=== PATIENT | male | born 1985 | race Caucasian/White ===

== ENCOUNTER 2018-10-15 14:00 | Emergency (ER) | payer BC ==
--- NOTE | 2018-10-15 14:07 | EDM.PDOC ---
ED HPI GENERAL MEDICAL PROBLEM - General Chief Complaint: Upper Extremity Injury/Pain Stated Complaint: POSSIBLY BROKE FINGER Time Seen by Provider: 10/15/18 14:06 Source of Information: Reports: Patient History Limitations: Reports: No Limitations - History of Present Illness INITIAL COMMENTS - FREE TEXT/NARRATIVE: HISTORY AND PHYSICAL: History of present illness: Patient is a 33-year-old male who is acting today for a finger injury. Patient states that he has been camping this weekend and he was playing on the monkey bars when he reached his hand up and jammed it on the metal bar. He states that initially his right fourth finger was white color returned on his way here, now pink with good CMS. He is unable to move finger but has full range of motion of all his other digits on his right hand. Reports achy pain to fourth right finger. He denies hitting his head or having any loss of consciousness. Has no other concerns or complaints today. Review of systems: As per history of present illness and below otherwise all systems reviewed and negative. Past medical history: As per history of present illness and as reviewed below otherwise noncontributory. Surgical history: As per history of present illness and as reviewed below otherwise noncontributory. Social history: See social history for further information Family history: As per history of present illness and as reviewed below otherwise noncontributory. Physical exam: General: Well-developed and well-nourished 33-year-old male. Alert and oriented. Nontoxic appearing and in no acute distress. HEENT: Atraumatic, normocephalic, pupils equal and reactive bilaterally, negative for conjunctival pallor or scleral icterus, mucous membranes moist, trachea midline. No drooling or trismus noted. No meningeal signs. No hot potato voice noted. Lungs: Clear to auscultation, breath sounds equal bilaterally, chest nontender. Heart: S1S2, regular rate and rhythm without overt murmur Abdomen: Soft, nondistended, nontender. Skin: Intact, warm, dry. No lesions or rashes noted. Extremities: Neurovascular unremarkable. Right fourth digit cap refill <2 sec, skin intact with no obvious deformities. Unable to demonstrate flexion the DIP joint of the fourth right digit. ROM and strength intact to all other digits and wrist. Radial pulse grossly intact. Neuro: Awake, alert, oriented. Cranial nerves II through XII unremarkable. Cerebellum unremarkable. Motor and sensory unremarkable throughout. Exam nonfocal. Notes: Transverse fracture through the proximal portion of the distal phalanx with a slight degree of dorsal angulation. No displacement seen. Spoon splint applied with education. Encouraged him to follow-up with the orthopedic provider, calling Wednesday for a follow-up appointment. Supportive care measures were reviewed and discussed. Voices understanding and is agreeable to plan of care. Denies any further questions or concerns at this time. Diagnostics: X-ray Therapeutics: Splint Prescription: Tramadol (declined) Impression: Fourth digit distal phalanx fracture, right Plan: 1. Rest, ice, elevate the affected extremity. Please wear the splint as directed. 2. Tylenol and/or Ibuprofen as needed for pain management. 3. Follow up with the Orthopedic provider as we discussed. Return to the ED as needed and as discussed. Definitive disposition and diagnosis as appropriate pending reevaluation and review of above. 4th right digit Pain Score (Numeric/FACES): 5 - Related Data Allergies Allergy/AdvReac Type Severity Reaction Status Date / Time No Known Allergies Allergy Verified 10/15/18 14:19 Home Meds: Home Meds traMADol [Ultram] 50 mg PO Q4H PRN #15 tab 10/15/18 [Rx] Review of Systems - Review of Systems Review Of Systems: ROS reveals no pertinent complaints other than HPI. ED EXAM, GENERAL - Physical Exam Exam: See Below (See dictation) Course - Vital Signs Last Recorded V/S: Last Vital Signs Temp 97.5 F 10/15/18 14:19 Pulse 71 10/15/18 14:19 Resp 18 10/15/18 14:19 BP 120/69 10/15/18 14:19 Pulse Ox 98 10/15/18 14:19 - Orders/Labs/Meds Orders: Active Orders 24 hr Category Date Time Status DME for Discharge [COMM] Stat Oth 10/15/18 14:40 Ordered Departure - Departure Time of Disposition: 14:39 Disposition: Home, Self-Care 01 Clinical Impression: Fracture of metacarpal bone Qualifiers: Encounter type: initial encounter Metacarpal bone: fourth Fracture type: closed Metacarpal location: unspecified portion of metacarpal Fracture alignment : nondisplaced Laterality: right Qualified Code(s): S62.304A - Unspecified fracture of fourth metacarpal bone, right hand, initial encounter for closed fracture - Discharge Information Prescriptions: traMADol [Ultram] 50 mg PO Q4H PRN #15 tab PRN Reason: Pain Instructions: Metacarpal Fracture, [id number] Referrals: Todd García MD [Primary Care Provider] - Forms: ED Department Discharge Additional Instructions: The following information is given to patients seen in the emergency department who are being discharged to home. This information is to outline your options for follow-up care. We provide all patients seen in our emergency department with a follow-up referral. The need for follow-up, as well as the timing and circumstances, are variable depending upon the specifics of your emergency department visit. If you don't have a primary care physician on staff, we will provide you with a referral. We always advise you to contact your personal physician following an emergency department visit to inform them of the circumstance of the visit and for follow-up with them and/or the need for any referrals to a consulting specialist. The emergency department will also refer you to a specialist when appropriate. This referral assures that you have the opportunity for follow-up care with a specialist. All of these measure are taken in an effort to provide you with optimal care, which includes your follow-up. Under all circumstances we always encourage you to contact your private physician who remains a resource for coordinating your care. When calling for follow-up care, please make the office aware that this follow-up is from your recent emergency room visit. If for any reason you are refused follow-up, please contact the [facility] Emergency Department at and asked to speak to the emergency department charge nurse. [facility] [address] [place] [id number] [facility] Professional [facility] [address] [place] [address], [address] [place] [address] 1. Rest, ice, elevate the affected extremity. Please wear the splint as directed. 2. Tylenol and/or Ibuprofen as needed for pain management. 3. Follow up with the Orthopedic provider as we discussed. Return to the ED as needed and as discussed. - My Orders Last 24 Hours: My Active Orders 10/15/18 14:40 DME for Discharge [COMM] Stat - Assessment/Plan Last 24 Hours: My Active Orders 10/15/18 14:40 DME for Discharge [COMM] Stat
--- NOTE | 2018-10-15 15:19 | CR ---
HISTORY: Pain after injury. FINDINGS: Three views of the right 4th finger are provided. There is a transverse fracture through the proximal portion of the distal phalanx with a slight degree of dorsal angulation. No displacement is seen. No intra-articular extension is noted. There is no evidence for fracture elsewhere. No findings for dislocation. Dictated by Shakeel Banerjee MD @ Oct 15 2018 3:12PM Signed by Dr. Shakeel Banerjee @ Oct 15 2018 3:17PM
== END 2018-10-15 14:52 | disposition home or self-care (01) ==
LOC: MW.ED 14:00
DX: S62.304A Unspecified fracture of fourth metacarpal bone, right hand, initial encounter for closed fracture (principal); W23.1XXA Caught, crushed, jammed, or pinched between stationary objects, initial encounter
CPT/HCPCS: 73140-26-F8; 73140-F8; 99283